=== PATIENT | male | born 1945 | race Caucasian/White ===

== ENCOUNTER 2022-01-28 13:15 | Emergency (ER) | payer MEDICARE, BC, SELFPAY ==
[2022-01-28 13:30] VITALS: BP 142/81; PULSE 103; RESP 16; TEMP 36.6; O2SAT 98
--- NOTE | 2022-01-28 13:45 | ED.SKABFB ---
HPI - Skin/Abscess/Foreign Bdy General Chief complaint: Skin/Abscess/Foreign Body Stated complaint: Abcess by left armpit Time Seen by Provider: 01/28/22 13:45 Source: patient Mode of arrival: ambulatory Limitations: no limitations History of Present Illness HPI narrative: 76 y/o male presented for c/o left axilla boil. First noticed as a 'pimple' 4 days ago, states it increased in size, pain, redness since then. Denies drainage. Denies associated n/v/fever/chills. Has not taken anything for pain or attempted draiange at home. complaint: abscess/boil Related Data Home Medications Medication Instructions Recorded Confirmed apixaban [Eliquis] 5 mg PO BID 01/28/22 01/28/22 atorvastatin 40 mg PO DAILY 01/28/22 01/28/22 diltiazem HCl 240 mg PO DAILY 01/28/22 01/28/22 furosemide 40 mg PO DAILY 01/28/22 01/28/22 Allergies Allergy/AdvReac Type Severity Reaction Status Date / Time No Known Allergies Allergy Verified 01/28/22 13:50 Review of Systems Review of Systems: CONSTITUTIONAL: Denies body aches, fever, chills, or sweats. EYES: Denies visual changes, redness, or discharge. ENT: Denies rhinorrhea, congestion, sore throat, or otalgia. CARDIOVASCULAR: Denies chest pain, palpitations, or edema. RESPIRATORY: Denies cough or dyspnea. GASTROINTESTINAL: Denies abdominal pain, nausea, vomiting, or diarrhea. GENITOURINARY: Denies dysuria or hematuria. SKIN: left axilla abscess MUSCULOSKELETAL: Denies back pain, joint pain, or myalgia. NEUROLOGIC: Denies headache, numbness, tingling, or weakness. PSYCH: Denies depression or anxiety. PMFSH Comments At time of signature, I have reviewed and agree with nursing past medical, surgical, social and family history unless otherwise noted. Please see nursing chart for further information. There is no relevant family history pertinent to the presenting complaint Exam Narrative: GENERAL: Well-appearing HEAD: Normocephalic, atraumatic. EYES: PERRLA, conjunctivae clear, and EOMI. ENT: Mucous membranes moist. Oropharynx without edema, erythema or lesions. NECK: Supple. No lymphadenopathy CHEST: Clear to auscultation. No respiratory distress. HEART: Regular rate and rhythm. SKIN: Warm, dry. Left axilla abscess, scabbed center approx 1cm diameter with erythematous and indurated surrounding skin approx [id number], no active drainage or streaking; tender with palpation NEURO: Alert and oriented x3. PSYCH: Normal mood and affect Course Course Emergency Course: Patient is aware of diagnosis, understands and agrees to treatment plan. Anticipatory guidance given. Patient agrees to follow-up as directed and is aware of reasons to seek care at the emergency department. Portions of this record may have been created with voice recognition software Level of Care: Express Care Visit Vital Signs Vital signs: Vital Signs Temperature 97.9 F 01/28/22 13:30 Pulse Rate 103 H 01/28/22 13:30 Respiratory Rate 16 01/28/22 13:30 Blood Pressure 142/81 H 01/28/22 13:30 Pulse Oximetry 98 01/28/22 13:30 Temperature 97.9 F 01/28/22 13:30 Pulse Rate 103 H 01/28/22 13:30 Respiratory Rate 16 01/28/22 13:30 Blood Pressure 142/81 H 01/28/22 13:30 Pulse Oximetry 98 01/28/22 13:30 Reviewed Procedures Abscess I/D upper extremity: Date of Incision: 01/28/22 Side (if applicable): left Sedation/analgesia: none Local Anesthetic: lidocaine 1% and with epi Amount of anesthesia used (mL): 3 Technique: incised with #11 blade Irrigation: Yes Packing used?: none I&D Results: Pus and Blood Abcess I&D Additional Comments: Wound cleansed with soap/water. Incision made to center of area of fluctuance after local anesthesia achieved. Small amount of thick purulent discharge and bloody discharge expelled.. Wound irrigated and probed for loculations. Pt tolerated the procedure well. Dressing applied. MDM - Skin/Abscess/Fore
== END 2022-01-28 14:43 | disposition home or self-care (01) ==
PROVIDERS: Emergency Provider Nurse Practitioner Family
DX: L02.412 Cutaneous abscess of left axilla (principal); Z96.642 Presence of left artificial hip joint; Z96.653 Presence of artificial knee joint, bilateral
CPT/HCPCS: 10060; 99213; G0463